=== PATIENT | male | born 1975 | race Caucasian/White ===

== ENCOUNTER → 2020-08-03 11:02 | Outpatient (CLI) | payer OTHER, SELFPAY ==
[2019-10-07 16:26] VITALS: BMI 32.0
[2020-08-03 13:17] LABS: AST(SGOT) 24 U/L (15-37); Alanine Aminotransfer ALT/SGPT 42 U/L (16-61); Albumin, Serum 3.5 g/dL (3.2-5.0); Alkaline Phosphatase 119 U/L (45-117); Bilirubin, Direct 0.14 mg/dL (0.00-0.30); Cholesterol 159 mg/dL (200); High Density Lipoprotein 54 mg/dL; Protein, Total 7.5 g/dL (6.4-8.2); Triglycerides 136 mg/dL; Very Low Density Lipoprotein 27 mg/dL (5-40)
== END ==
PROVIDERS: PCP Family Medicine; Referring Provider Family Medicine; Visit Provider Family Medicine
DX: E78.5 Hyperlipidemia, unspecified (principal); R79.89 Other specified abnormal findings of blood chemistry
CPT/HCPCS: 36415; 80061; 80076

== ENCOUNTER → 2023-06-10 | Outpatient (CLI) | payer OTHER, SELFPAY ==
--- NOTE | 2023-06-10 10:57 | RAD_ITS ---
STUDY: X-RAY - RIGHT ELBOW REASON FOR EXAM: Male, 48 years old. Elbow pain. TECHNIQUE: 3 views of the right elbow. COMPARISON: None. FINDINGS: There is an olecranon spur at the distal insertion of the triceps tendon. The otherwise, normal visualized humerus, radius and ulna. Normal radiocapitellar and ulnotrochlear articulations. The soft tissue structures are unremarkable. There is no demonstrated acute fracture. RAD/Elbow min 3 Views IMPRESSION: Olecranon spur at the distal insertion of the triceps tendon. No demonstrated acute fracture. Electronically Signed: Jake Goldberg MD at 8:36 EDT ,
== END | disposition home or self-care (01) ==
LOC: MTRAD 10:56
PROVIDERS: PCP Family Medicine; Referring Provider Orthopaedic Surgery Sports Medicine; Visit Provider Orthopaedic Surgery Sports Medicine
DX: M25.521 Pain in right elbow (principal)
CPT/HCPCS: 73080

== ENCOUNTER → 2023-06-11 | Outpatient (CLI) | payer OTHER, SELFPAY ==
--- NOTE | 2023-06-11 07:21 | MRI_ITS ---
STUDY: MRI RIGHT ELBOW REASON FOR EXAM: Male, 48 years old. Assess distal biceps tear. TECHNIQUE: Standardized fat and water weighted pulse sequences were obtained in all 3 orthogonal planes. COMPARISON: Right elbow radiographs dated 06/10/2023. FINDINGS: Normal radio-capitellum articulation. Normal radial collateral ligamentous complex. Normal common extensor tendon. Normal ulnotrochlear articulation. Normal ulnar collateral ligamentous complex. Normal common flexor tendon. The cubital tunnel is normal, with a normal ulnar nerve. There is a tear/rupture of the distal biceps tendon, with 4 cm proximal tendon retraction (sagittal T2 series 7 images 11-15). Normal brachialis musculotendinous insertion. Normal triceps tendon and teno-osseous insertion. There is an olecranon spur at the distal insertion of the triceps tendon. The visualized distal humerus, proximal radius, and ulna are normal. The visualized muscles of the distal arm and proximal forearm are normal. There is subcutaneous soft tissue edema along the anteromedial aspect of the elbow. MRI/Upper Ext Joint Only(Routine) IMPRESSION: Tear/rupture of the distal biceps tendon, with 4 cm proximal tendon retraction. Subcutaneous soft tissue edema along the anteromedial aspect of the elbow. Olecranon spur. Electronically Signed: Jake Goldberg MD at 8:40 EDT ,
== END | disposition home or self-care (01) ==
PROVIDERS: PCP Family Medicine; Referring Provider Orthopaedic Surgery Sports Medicine; Visit Provider Orthopaedic Surgery Sports Medicine
DX: M25.521 Pain in right elbow (principal); S46.211A Strain of muscle, fascia and tendon of other parts of biceps, right arm, initial encounter
CPT/HCPCS: 73221

== ENCOUNTER 2023-06-19 07:40 | Day surgery (SDC) | payer OTHER, SELFPAY ==
[2023-06-19 08:01] VITALS: BP 153/95; PULSE 87; RESP 18; TEMP 36.9; O2SAT 100; BMI 32.4
[2023-06-19] MEDS: Lactated Ringers 1,000 ML 15 ML IV (08:11)
--- NOTE | 2023-06-19 08:15 | RAD_ITS ---
STUDY: X-RAY - RIGHT ELBOW REASON FOR EXAM: Male, 48 years old. DISTAL BICEPS REPAIR TECHNIQUE: 2 spot films of the right elbow during distal biceps tendon repair surgery. COMPARISON: Right elbow radiographs dated 06/10/2023. FINDINGS: There is a new Endobutton projecting over the radial tuberosity, compatible with distal biceps tendon repair surgery. Intact ulna. Normal radiocapitellar and ulnotrochlear articulations. RAD/Elbow 2 Views IMPRESSION: New Endobutton projecting over the radial tuberosity, compatible with distal biceps tendon repair surgery. Electronically Signed: Jake Goldberg MD at 16:11 EDT ,
--- NOTE | 2023-06-19 08:41 | HP.PCM_ITS ---
HPI - General HPI Narrative RUI ELLIS, is a 48 M who presents for repair right distal biceps. no changes to h and p. ok to proceed. anesthesia plans block. rab post op instructions narcotic counselling. here with his . no further questions. right elbow marked. MR#: [id number] Acct: [id number] Name: RUI ELLIS Rep #: [id number] : 1975 Provider: Dr. Rajesh Capone MD Age/Sex: 48/M Location: [facility] [place] Status: Signed Intake Vital Signs 06/09/2409:34 Height 5 ft 7 in Weight: 208 lb BMI 32.5 Intake Visit Reasons: right arm Chief Complaint: RIGHT ARM PAIN Accompanied by: Self Is patient in pain?: Yes Allergies No Known Allergies Allergy (Unverified 06/13/23 09:57) Medications allopurinol 100 mg tablet 100 mg PO DAILY 03/02/18 [History Confirmed 06/13/23] amlodipine 5 mg tablet 5 mg PO DAILY 06/10/23 [History Confirmed 06/13/23] losartan 100 mg tablet 100 mg PO DAILY 06/10/23 [History Confirmed 06/13/23] pantoprazole 20 mg tablet,delayed release (Protonix) 20 mg PO DAILY 06/10/23 [History Confirmed 06/13/23] PFSH Medical History Arthritis Hypertension Right elbow pain Rupture of right distal biceps tendon Surgical History Hx of tonsillectomy Family History Other Cancer Gout Hypertension Social History Smokeless tobacco user: chewing tobacco alcohol intake: current HPI right arm Details: This documentation accurately reflects the service provided and the decisions made by me, Dr. Rajesh Capone MD 06/13/23 0902. Part of today?s visit was documented by [ ], acting as scribe. RUI ELLIS is a 48 year old M here today for follow-up right elbow MRI to assess for distal biceps tear. Ortho Exam General General: Yes no acute distress Neurologic: Yes alert and Yes oriented x3 Psychologic: Yes reasonable and appropriate Right Wrist/Hand Motor: EPL: 5, FDP-2: 5, 1st Dorsal Interosseous: 5 and APB: 5 Sensation: Radial: I, Ulnar: I and Median: I Right Elbow Skin/Wound: Yes CDI and Yes Swelling ROM: Yes Flexion 0-140, Supination 0-90 and Pronation 0-80 Sensation: Radial: I, Ulnar: I and Median: I Motor: Elbow Extension: 4, Elbow Flexion: 4, EPL: 5, FDP-2: 5 and 1st Dorsal Interosseous: 5 ELBOW: There is Austin sign change of the distal biceps contour. I am unable to hook the distal biceps. He is weak in supination compared to the other side and there is no obvious rise and fall with pronation and supination of the forearm. Supplemental Info [facility] Imaging Services [address] [place] [address] Upper Ext Joint Only(Routine) MR#: [id number] Acct: [id number] Name: RUI ELLIS Rep #: [id number] : 1975 M 48 From: Jake Goldberg MD PCP: Dr. Delmer Marie MD Status: REG CLI Study: Upper Ext Joint Only(Routine) Date of Exam: 06/11/23 Exam# [id number] Ordering Dr: Rajesh Capone MD STUDY: MRI RIGHT ELBOW REASON FOR EXAM: Male, 48 years old. Assess distal biceps tear. TECHNIQUE: Standardized fat and water weighted pulse sequences were obtained in all 3 orthogonal planes. COMPARISON: Right elbow radiographs dated 06/10/2023. FINDINGS: Normal radio-capitellum articulation. Normal radial collateral ligamentous complex. Normal common extensor tendon. Normal ulnotrochlear articulation. Normal ulnar collateral ligamentous complex. Normal common flexor tendon. The cubital tunnel is normal, with a normal ulnar nerve. There is a tear/rupture of the distal biceps tendon, with 4 cm proximal tendon retraction (sagittal T2 series 7 images 11-15). Normal brachialis musculotendinous insertion. Normal triceps tendon and teno-osseous insertion. There is an olecranon spur at the distal insertion of the triceps tendon. The visualized distal humerus, proximal radius, and ulna are normal. The visualized muscles of the distal arm and proximal forearm are normal. There is subcutaneous soft tissue edema along the anteromedial aspect of the elbow. MRI/Upper Ext Joint Only(Routine) IMPRESSION: Tear/rupture of the distal biceps tendon, with 4 cm proximal tendon retraction. Subcutaneous soft tissue edema along the anteromedial aspect of the elbow. Olecranon spur. Electronically Signed: Jake Goldberg MD at 8:40 EDT Reading Location ID and State: [facility] / [place] , Service support , I independently reviewed the imaging. Concur with radiologist report. Coding Level of Care Code Off vis,est,level 3 Diagnoses Rupture of right distal biceps tendon S46.211A Assessment and Plan Assessment and Plan (1) Rupture of right distal biceps tendon: Status: Acute Plan: 48-year-old man with tear of the right distal biceps tendon. Again we discussed the pros and cons risk benefits of surgery versus nonoperative management. I typically perform this throughout single volar proximal incision biceps button drilled over bicortically at the radial tuberosity. Small chance of PIN nerve injury or LABC nerve injury. One third of the PIN nerve injuries did not recover. He understands wishes to proceed with surgery we will try to get this on for early next week on Saturday. Pros and cons risks and benefits were discussed with the patient including but not limited to infection, pain, stiffness, bleeding, damage to surrounding structures, neurovascular injury, recurrence or retear, failure or wear of hardware or fixation, instability, fracture, deep vein thrombosis and pulmonary embolism, anesthetic risks, , patient dissatisfaction, need for further surgery and other risks. Patient understood and wished to proceed with surgery, and signed the informed consent documentation. [facility] Medical History (Updated 06/18/23 @ 08:51 by Stacy Schriber) Alcohol use Arthritis Chewing tobacco dependence Fatty liver Gastric reflux Gout History of ulceration Hypertension Right elbow pain Rupture of right distal biceps tendon Wears glasses Home Medications allopurinol 100 mg tablet 100 mg PO DAILY 03/02/18 [History Last Taken 06/18/23] amlodipine 5 mg tablet 5 mg PO DAILY 06/10/23 [History Last Taken 06/19/23] losartan 100 mg tablet 100 mg PO DAILY 06/10/23 [History Last Taken 06/19/23] pantoprazole 20 mg tablet,delayed release (Protonix) 40 mg PO DAILY 06/10/23 [History Last Taken 06/19/23] Allergy/AdvReac Type Severity Reaction Status Date / Time No Known Allergies Allergy Verified 06/19/23 08:00 Family History Other Cancer Gout Hypertension Surgical History Hx of tonsillectomy Social History Smoking Status: Current every day smoker tobacco type: smokeless tobacco Smokeless tobacco user: chewing tobacco alcohol intake: current Vital Signs Vital Signs Vital Signs: 06/19/23 08:01 06/19/23 08:01 Temperature 98.5 F Temperature Source Temporal Pulse Rate 87 Respiratory Rate 18 Respiratory Pattern Normal Blood Pressure 153/95 H Blood Pressure Mean 114 Blood Pressure Source Monitor Blood Pressure Position Semi-Fowlers Blood Pressure Location Left Arm Pulse Ox 100 Oxygen Delivery Method Room Air Weight Weight: 207 lb 3.752 oz Body Mass Index (BMI) 32.4
[2023-06-19] MEDS: Cefazolin 2 GM in 0.9% Normal Saline (100mL Bag) 100 ML IV (09:05)
--- NOTE | 2023-06-19 09:15 | TESH_PTH ---
PATIENT: RUI ELLIS LOC: [facility] [place] U#:[id number] AGE/SX: 48/M ROOM: RE06/19/[address]: Dr. Rajesh Capone MD : 1975 BED: DIS: 06/19/2023 SPEC #: [id number] RECD: 06/19/23 10:50 STATUS: YFN KARLA #: [id number] DHARMESH: 06/19/23 09:[address]: Rajesh Capone DEPT: SURGICAL PATHOLOGY RECD BY: Mariann Elliott ENTERED: 06/19/23 11:20 SP TYPE: TENDON OTHR DR: Dr. Delmer Marie MD Tissues: Tendon and tendon sheath, NOS Procedures: Surgery Specimen Level III HEADER OPERATION: Right distal biceps repair PRE-OP DIAGNOSIS: Rupture of right distal biceps tendon TISSUE SUBMITTED: Biceps tendon right arm MICROSCOPIC DIAGNOSIS Bicep of the right arm, tendon repair: Pieces of dense fibroconnective tissue and fibroadipose tissue with reactive changes. / 06/20/23 MICROSCOPIC DESCRIPTION Slides are reviewed. GROSS DESCRIPTION Received in fixative is one container labeled with the patient's name and designated Biceps tendon right arm. The specimen consists of two pieces of thompson indurated tissue measuring in aggregate 2.0 x 1.2 x 0.5cm. The entire specimen is submitted in one cassette. / 06/19/2023 TC:5 CPT:82615
--- NOTE | 2023-06-19 10:11 | PCM.OPRPT ---
Problems Associated Problem List Diagnoses (1) Rupture of right distal biceps tendon: Report of Operation Date of Procedure: 06/19/23 Pre-Operative Diagnosis: Right distal biceps tear Post-Operative Diagnosis: same Surgery/Procedure Performed:: right distal biceps repair Surgeon: Rajesh Capone Type of Anesthesia: Block,Regional and General Anesthesiologist: Tomi Guajardo Estimated Blood Loss (mL): 10 Description of Procedure: Patient brought to the operating room theater. Placed supine on the table. 2 g IV Ancef administered prior to start of procedure. All bony prominences padded. SCDs on the legs. General anesthesia induced. Arm table to the patient's right side. Tourniquet applied to the upper extremity properly padded. Bed turned 90 degrees. Right upper extremity prepped and draped in the usual sterile fashion allowing over 3 minutes drying time prior to draping. Preoperative timeout performed confirm the site patient and surgery. Began by elevating the limb inflated the tourniquet to 250 mmhg. Made a standard transverse incision 2 fingerbreadths below the level of the elbow crease. This was in the mid aspect of the proximal volar forearm. Carried the dissection down through skin and subcutaneous tissue to meticulous hemostasis. Protected superficial cutaneous nerves and vessels. Identified the distal biceps tendon. Deliver this through the incision. I removed the bulbous distal end of the distal biceps down to healthy tissue tubularized this. Use the Arthrex distal button kit with a Pedro needle to perform a running locking suture and locked the suture distally cut at the splice. Transfer the suture ends in opposite directions through the button. Next I turned my attention distally. Identified the tuberosity. I used intra op radiographs to do this. I cleared away any superficial soft tissue from the tuberosity fully supinate the arm. Passed spade tip guidewire bicortically at this area. Then I sized the tendon to be a size 7 I reamed over the proximal cortex with a size 8 reamer irrigated and removed the bony debris. I then passed the button to the far cortex and flipped the button, delivered the tendon into the bone tunnel by pulling on free ends of sutures, tension slide technique. Mobilized early adhesions prior to doing the repair. I then passed 1 suture limb back through the tendon and locked this using 5 interrupted half hitches with the sutures cut short. Passed the 7mm interference screw into the tunnel as well for backup fixation, tied over this as well. Took xrays to confirm the position of the button at the tuberosity. Tourniquet let down meticulous hemostasis thorough irrigation performed. Elbow flexed 90 degrees wound closed with 3-0 Vicryl sutures and 3-0 Monocryl. Skin cleaned with wet dry dressing. Skin cleaned with wet dry dressing followed application of Steri-Strips 4 x 4 gauze ABD Jason wrap as well as a posterior prefabricated fiberglass splint with the elbow at 90 degrees and a well-padded sling for the upper extremity. Patient woken up from general anesthetic transferred off the operating table taken postanesthetic care unit in stable addition. All sponge needle return counts were correct no complications. cpt 14054 Complications none Admit VTE Documentation VTE Present on Admission: No VTE Mechan Device Prophylaxis: SCD's VTE Pharm Prophylaxis ordered?: No Reason prophylaxis not ordered:: Treatment Not Indicated Procedures Musculoskeletal 20xxx-29xxx: Other Procedure See Report
[2023-06-19 10:12] VITALS: BP 134/81; BP 153/95; PULSE 82; RESP 16; TEMP 36.3; O2SAT 96
[2023-06-19 10:15] VITALS: BP 133/85; BP 153/95; PULSE 82; RESP 16; O2SAT 96
--- NOTE | 2023-06-19 10:15 | DCINST_ITS ---
Discharge Instructions Diet Discharge Diet: No restrictions Activity Discharge Activity: Return to Normal Activity Ice area for (Minutes): 10 Lifting Restrictions: no ROM of elbow, ok for shoulder and wrist /hand gentle ROM Dressing / Incision Call your doctor if your incision/area has: Continuous Slow Oozing, Sudden Increased Bleeding, Increased Pain/ Swelling, Increased Redness, Foul Smelling Discharge and Swelling at the incision site Change Dressing in: leave in place till F/U Follow Up Care Please Follow Up With: Rajesh Capone MD When: 2 days Test Results: Test results from this visit will be discussed in further detail at your follow- up appointment, if applicable. Discharge Plan Admission Attending Provider: Rajesh Capone Primary Care Provider: Delmer Marie Discharge Orders/Prescriptions Prescriptions: New oxycodone-acetaminophen [Endocet] 5-325 mg tablet 1 tab PO Q4H MDD 6 PRN (Reason: pain) 5 Days Qty: 20 0RF No Action allopurinol 100 mg tablet 100 mg PO DAILY amlodipine 5 mg tablet 5 mg PO DAILY losartan 100 mg tablet 100 mg PO DAILY pantoprazole [Protonix] 20 mg tablet,delayed release (DR/EC) 40 mg PO DAILY Referrals / Follow Up: Delmer Marie MD [Primary Care Provider] - Rajesh Capone MD [Med Staff - Active Staff] - Disposition Disposition (needs filled in before D/C Order can be placed): Home, Self Care
[2023-06-19 10:20] VITALS: BP 133/83; BP 153/95; PULSE 81; RESP 16; O2SAT 97
[2023-06-19 10:25] VITALS: BP 138/87; BP 153/95; PULSE 78; RESP 16; TEMP 36.4; O2SAT 98
[2023-06-19 10:59] VITALS: BP 120/74; BP 153/95; PULSE 71; RESP 16; TEMP 36.6; O2SAT 99
== END 2023-06-19 11:03 | disposition home or self-care (01) ==
LOC: SDC 07:41 → AC 07:42
PROVIDERS: PCP Family Medicine; Referring Provider Orthopaedic Surgery Sports Medicine; Visit Provider Orthopaedic Surgery Sports Medicine
PROC: (CPT 24341; principal; 2023-06-19 09:00)
DX: S46.211A Strain of muscle, fascia and tendon of other parts of biceps, right arm, initial encounter (principal); M10.9 Gout, unspecified; I10 Essential (primary) hypertension; X58.XXXA Exposure to other specified factors, initial encounter; F17.220 Nicotine dependence, chewing tobacco, uncomplicated; Z79.899 Other long term (current) drug therapy
CPT/HCPCS: 24342; 01710; 64418; 73070; 76000; 88304; J7120; J2405